=== PATIENT | female | born 1950 | race Caucasian/White ===

== ENCOUNTER 2018-04-17 08:56 | Day surgery (SDC) | payer OTHER ==
[2018-04-17] MEDS ORDERED: Lactated Ringer's 500 ML IV ONE (11:10)
[2018-04-17 11:16] VITALS: TEMP 97
[2018-04-17] MEDS ORDERED: Propofol 10 mg/ml Inj (20 ML) ONE (12:25)
[2018-04-17 13:37] VITALS: BP 137/81; PULSE 58; RESP 16; O2SAT 100
== END 2018-04-17 13:38 | disposition home or self-care (01) ==
LOC: H.ENDO 08:56
PROVIDERS: ATTEND Internal Medicine Gastroenterology
DX: K29.50 Unspecified chronic gastritis without bleeding (principal); K31.89 Other diseases of stomach and duodenum; R10.13 Epigastric pain
CPT/HCPCS: 43239; 88305; 88342; J2001; J2704; J7120